=== PATIENT | female | born 1970 | race Asian ===

== ENCOUNTER 2022-12-21 14:09 | Outpatient (CLI) | payer MEDICARE | END 2022-12-21 23:59 | disposition critical access hospital (66) | LOC: EMS 14:09 | DX: R11.2 Nausea with vomiting, unspecified (principal); R53.1 Weakness; R42 Dizziness and giddiness; H53.8 Other visual disturbances; R73.9 Hyperglycemia, unspecified | CPT/HCPCS: A0425; A0427 ==

== ENCOUNTER 2022-12-21 14:48 | Emergency (ER) | payer MEDICARE ==
[2022-12-21 15:19] LABS: BASOPHILS # (AUTO) 0.1 10^3/uL (0.0-0.1); BASOPHILS % (AUTO) 0.5 %; EOSINOPHILS # (AUTO) 0.1 10^3/uL (0.0-0.7); EOSINOPHILS % (AUTO) 0.9 %; HGB - HEMOGLOBIN 12.8 g/dL (12.0-16.0); LYMPHOCYTES # (AUTO) 2.2 10^3/uL (1.5-3.5); LYMPHOCYTES % (AUTO) 17.2 %; MEAN CORPUSCULAR HGB CONC 32.8 g/dL (32.0-36.0); MEAN CORPUSCULAR VOLUME 91.5 fL (81.0-99.0); MEAN PLATELET VOLUME 10.2 fL (7.9-10.8); MONOCYTES # (AUTO) 0.7 10^3/uL (0.0-1.0); MONOCYTES % (AUTO) 5.7 %; NEUTROPHILS # (AUTO) 9.6 10^3/uL (1.5-6.6); NEUTROPHILS % (AUTO) 74.4 %; PLT - PLATELET COUNT 250 10^3/uL (130-450); RED BLOOD COUNT 4.26 10^6/uL (4.20-5.40); RED CELL DISTRIBUTION WIDTH 12.1 % (12.0-15.0); WHITE BLOOD COUNT 12.9 x10^3/uL (4.8-10.8)
[2022-12-21 15:30] LABS: ALBUMIN 3.6 g/dL (3.2-5.5); ALBUMIN/GLOBULIN RATIO 1.1 (1.0-2.2); BILIRUBIN,TOTAL 0.3 mg/dL (0.2-1.0); CALCIUM 8.5 mg/dL (8.5-10.3); CREATININE 0.7 mg/dL (0.4-1.0); POTASSIUM 3.8 mmol/L (3.5-5.0); TOTAL PROTEIN 6.8 g/dL (6.7-8.2)
[2022-12-21] MEDS ORDERED: ONDANSETRON 4 MG/2 ML VIAL IVP STA (15:47)
[2022-12-21] MEDS ORDERED: SODIUM CHLORIDE 0.9% 1,000 ML IV STA (15:47)
--- NOTE | 2022-12-21 16:13 | ED Physician Documentation ---
PD HPI ABD PAIN - Stated complaint Stated Complaint: VOMITING - Chief complaint Chief Complaint: Abd Pain - History obtained from History obtained from: Patient - Additional information Additional information: This is a 52-year-old female with past medical history of diabetes and obesity who presents with sudden onset nausea and vomiting after eating some chicken at the [place]. She states symptoms started about 45 minutes after she ate it and she feels improvement after vomiting. She had does not have any abdominal pain, no diarrhea or constipation, no dysuria urgency or frequency. She has not had a fever or chills. She vomited several times, nonbloody, nonbilious and since then has felt better. She did receive a liter of IV fluids and 4 mg of Zofran by EMS prior to arrival. Review of Systems Constitutional: reports: Reviewed and negative Cardiac: reports: Reviewed and negative Respiratory: reports: Reviewed and negative GI: reports: Nausea, Vomiting. denies: Abdominal Pain, Abdominal Swelling, Constipation, Diarrhea, Hematemesis, Bloody / black stool : reports: Reviewed and negative Skin: reports: Reviewed and negative Musculoskeletal: reports: Reviewed and negative Neurologic: reports: Reviewed and negative PD PAST MEDICAL HISTORY - Past Medical History Past Medical History: Yes Endocrine/Autoimmune: Type 2 diabetes - Present Medications Home Medications: Ambulatory Orders Medication Instructions Recorded Confirmed ONDANSETRON ODT Prepack 2 [ZOFRAN 4 mg TL Q6H PRN #12 tablet 12/21/22 ODT Prepack 2] - Allergies Allergies/Adverse Reactions: Allergies Allergy/AdvReac Type Severity Reaction Status Date / Time No Known Drug Allergies Allergy Verified 12/21/22 14:53 PD ED PE NORMAL - Vitals Vital signs reviewed: Yes - General General: Alert and oriented X 3, No acute distress, Well developed/nourished - HEENT HEENT: Atraumatic, Pharynx benign - Neck Neck: Supple, no meningeal sign, No JVD - Cardiac Cardiac: RRR, No murmur, No gallop, No rub - Respiratory Respiratory: No respiratory distress, Clear bilaterally - Abdomen Abdomen: Normal bowel sounds, Soft, Non tender, Non distended - Derm Derm: Normal color, Warm and dry, No rash - Neuro Neuro: Alert and oriented X 3 Eye Opening: Spontaneous Motor: Obeys Commands Verbal: Oriented GCS Score: 15 Results - Vitals Vitals: Vital Signs - 24 hr 12/21/22 14:53 Temperature 36.5 C Heart Rate 96 Respiratory 18 Rate Blood Pressure 141/87 H O2 Saturation 97 Oxygen O2 Source Room air - Labs Labs: Laboratory Tests 12/21/22 12/21/22 12/21/22 15:13 15:13 16:32 WBC 12.9 H RBC 4.26 Hgb 12.8 Hct 39.0 MCV 91.5 MCH 30.0 MCHC 32.8 RDW 12.1 Plt Count 250 MPV 10.2 Neut # (Auto) 9.6 H Lymph # (Auto) 2.2 [place] # (Auto) 0.7 Eos # (Auto) 0.1 Baso # (Auto) 0.1 Absolute Nucleated RBC 0.00 Nucleated RBC % 0.0 Sodium 140 Potassium 3.8 Chloride 106 Carbon Dioxide 27 Anion Gap 7.0 BUN 16 Creatinine 0.7 Estimated GFR (MDRD) 87 L Glucose 396 H Calcium 8.5 Total Bilirubin 0.3 AST 22 ALT 39 Alkaline Phosphatase 90 Total Protein 6.8 Albumin 3.6 Globulin 3.2 Albumin/Globulin Ratio 1.1 Lipase 31 Urine Color YELLOW Urine Clarity CLEAR Urine pH 6.0 Ur Specific [place] 1.015 Urine Protein NEGATIVE Urine Glucose (UA) >=1000 H Urine Ketones 15 H Urine Occult Blood NEGATIVE Urine Nitrite NEGATIVE Urine Bilirubin NEGATIVE Urine Urobilinogen 0.2 (NORMAL) Ur Leukocyte Esterase NEGATIVE Ur Microscopic Review NOT INDICATED Urine Culture Comments NOT INDICATED Urine HCG, Qual NEGATIVE PD Medical Decision Making - ED course Complexity details: reviewed results, re-evaluated patient, considered differential, d/w patient ED course: 52-year-old female presented with nausea and vomiting shortly after eating at the [facility]. She is well-appearing on physical exam, stable vital signs. She has no abdominal pain and appears nontoxic. We obtained labs which are largely reassuring, she does have elevated glucose but otherwise normal renal function and electrolytes, normal liver function and a stable CBC. No evidence of DKA. Her UA is negative for infection. She was given IV fluids and Zofran with improvement in her symptoms. I suspect this is a mild viral gastroenteritis or bacterial enteritis secondary to her p.o. intake but I do not take any antibiotics or indicated at this time as it will be likely be self-limiting. She was advised on supportive measures, clear liquid diet and advance as tolerated to bland diet until feeling better, Zofran as needed, Tylenol as needed for cramping. Return precautions viewed in detail with the patient. Departure - Departure Disposition: 01 Home, Self Care Clinical Impression: Nausea and vomiting in adult patient Condition: Good Instructions: ED Nausea Vomiting Prescriptions: ONDANSETRON ODT Prepack 2 [ZOFRAN ODT Prepack 2] 4 mg TL Q6H PRN #12 tablet PRN Reason: Nausea / Vomiting Comments: You presented with nausea and vomiting shortly after eating. Your symptoms have subsequently improved. We did obtain labs which are stable aside from elevated blood glucose. He received IV fluids and nausea medicine in the ER and I will discharge you home with some as needed nausea tablets. Please stick to a clear liquid diet today until feeling better then you may advance to a bland diet There after. He can take Tylenol as needed for cramping, and try to stay well- hydrated. If you develop increasing abdominal pain, fever or other new concerns, return to the ER as needed.
[2022-12-21 16:46] LABS: BILIRUBIN,URINE NEGATIVE (NEGATIVE); GLUCOSE, URINE (UA) >=1000 mg/dL (NEGATIVE); KETONES,URINE (UA) 15 mg/dL (NEGATIVE); LEUKOCYTE ESTERASE, URINE NEGATIVE (NEGATIVE); NITRITE,URINE NEGATIVE (NEGATIVE); OCCULT BLOOD,URINE NEGATIVE (NEGATIVE); PROTEIN,URINE NEGATIVE (NEGATIVE); UROBILINOGEN,URINE 0.2 (NORMAL) E.U./dL (NORMAL)
[2022-12-21 16:48] LABS: CLARITY,URINE CLEAR (CLEAR); HCG UR QUAL NEGATIVE
[2022-12-21 17:02] VITALS: BP 139/79
== END 2022-12-21 17:25 | disposition home or self-care (01) ==
LOC: EDUNIT# → ED 14:48
DX: R11.2 Nausea with vomiting, unspecified (principal); E11.9 Type 2 diabetes mellitus without complications
CPT/HCPCS: 36415; 80053; 81001; 81003; 81025; 83690; 85025; 87086; 99283; 99284